=== PATIENT | male | born 1940 | race African-American/Black ===

== ENCOUNTER 2016-12-21 14:03 | Observation (INO) | payer MEDICARE ==
[~2016-12-21] VITALS: Ht 175.3 cm; Wt 68.9 kg
[~2016-12-21 14:03] MED LIST: ATEN-42 PO; ATOR40TA70 PO; DOXY100C2 PO; LOSA50TA20 PO; METF500T4 PO
[2016-12-21] MEDS ORDERED: SODIUM CHLORIDE 0.9% 500 ML IV ONE (14:56)
[2016-12-21 15:24] LABS: HEMATOCRIT. 37.9 % (42.0-52.0); HEMOGLOBIN. 12.5 g/dL (14.0-18.0); MEAN CORPUSCULAR HEMOGLOBIN 25.6 pg (28.0-32.0); MEAN CORPUSCULAR HGB CONC 33.1 g/dL (31.0-37.0); MEAN CORPUSCULAR VOLUME 77.5 fL (80.0-94.0); MEAN PLATELET VOLUME 9.1 fl (7.4-10.4); PLATELET 237 x1000/uL (130-400); RED BLOOD CELL COUNT 4.89 mill/uL (4.7-6.1); RED CELL DISTRIBUTION WIDTH 17.3 % (11.6-14.6); WHITE BLOOD COUNT 4.2 x1000/uL (4.5-11.0)
[2016-12-21 15:26] LABS: DIFFERENTIAL COMMENT 1
[2016-12-21 15:28] LABS: CHLORIDE 104 mEq/L (98-107); INDEX HEMOLYSI 1 (1-3); INDEX ICTERIC 1 (1-4); INDEX LIPEMIC 1 (1-3)
[2016-12-21 15:32] LABS: ALBUMIN 3.2 g/dL (3.4-5.0); ANION GAP 13; CARBON DIOXIDE 24 mEq/L (21-32); UREA NITROGEN BLOOD 36 mg/dL (7-21)
[2016-12-21 15:38] LABS: ALANINE AMINOTRANSFERASE 18 IU/L (13-61); eGFR > 60 mL/min (>60)
[2016-12-21 15:41] LABS: CREATINE KINASE MB FRACTION 1.1 ng/mL (0.5-3.6); TROPONIN I < 0.02 ng/mL (0.00-0.04)
[2016-12-21 16:14] LABS: PLATELET ESTIMATE NORMAL
[2016-12-21 16:15] LABS: ANISOCYTOSIS 1+
[2016-12-21] MEDS ORDERED: ASPIRIN 325MG EC TABLET PO ONE (17:45)
[2016-12-21 21:00] VITALS: BP 134/85
[2016-12-21 22:15] VITALS: BP 134/85
[2016-12-21] MEDS ORDERED: HYDROCODONE/ACETAMINOPHEN 5/325MG TABLET PO PRN (22:30)
[2016-12-21] MEDS ORDERED: ONDANSETRON HCL 4MG/2ML VIAL IV PRN (22:30)
[2016-12-21] MEDS ORDERED: ACETAMINOPHEN 325MG TABLET PO PRN (22:30)
[2016-12-21] MEDS ORDERED: DOCUSATE SODIUM 100MG CAPSULE PO PRN (22:30)
[2016-12-22] VITALS (7 sets, daily range): BP systolic 120–162; BP diastolic 75–91
[2016-12-22 06:17] LABS: DIFFERENTIAL COMMENT 0; EOSINOPHILS % 3.7 % (0.0-5.0); HEMATOCRIT. 35.5 % (42.0-52.0); HEMOGLOBIN. 11.7 g/dL (14.0-18.0); LYMPHOCYTES % 28.7 % (20.0-50.0); MEAN CORPUSCULAR HEMOGLOBIN 25.5 pg (28.0-32.0); MEAN CORPUSCULAR VOLUME 77.1 fL (80.0-94.0); MEAN PLATELET VOLUME 9.5 fl (7.4-10.4); NEUTROPHILS % 53.6 % (40.0-76.0); PLATELET 218 x1000/uL (130-400); RED CELL DISTRIBUTION WIDTH 17.2 % (11.6-14.6); WHITE BLOOD COUNT 4.1 x1000/uL (4.5-11.0)
[2016-12-22 06:37] LABS: ALANINE AMINOTRANSFERASE 14 IU/L (13-61); ALBUMIN 2.9 g/dL (3.4-5.0); ANION GAP 9; CALCIUM 8.5 mg/dL (8.5-10.1); CARBON DIOXIDE 28 mEq/L (21-32); CHLORIDE 108 mEq/L (98-107); HDL CHOLESTEROL 48 mg/dL (40-59); INDEX HEMOLYSI 1 (1-3); INDEX ICTERIC 1 (1-4); INDEX LIPEMIC 1 (1-3); T4 FREE 1.06 ng/dL (0.76-1.46); TRIGLYCERIDE 101 mg/dL (0-150); TROPONIN I < 0.02 ng/mL (0.00-0.04); UREA NITROGEN BLOOD 32 mg/dL (7-21); eGFR 55 mL/min (>60)
[2016-12-22 06:48] LABS: LDL CHOLESTEROL 73 mg/dL (5-100)
[2016-12-22] MEDS ORDERED: DEXTROSE 50% WATER 50ML SYRINGE IV PRN (07:00)
[2016-12-22] MEDS: BLOOD SUGAR DIAGNOSTIC STRIP TEST SCH ×4 (07:06→20:36)
[2016-12-22] MEDS: INSULIN LISPRO 100 UNITS/ML SUBCUT SCH ×4 (07:06→20:36)
[2016-12-22] MEDS: METFORMIN HCL 500MG TABLET PO SCH ×2 (08:14→17:37)
[2016-12-22] MEDS: LOSARTAN POTASSIUM 50 MG TABLET PO SCH (08:15)
[2016-12-22] MEDS: ASPIRIN 81MG EC TABLET PO SCH (08:15)
[2016-12-22] MEDS: ATENOLOL 25MG TABLET PO SCH (08:15)
[2016-12-22] MEDS ORDERED: DOXYCYCLINE HYCLATE 100MG CAPSULE PO SCH (09:00)
[2016-12-22] MEDS: ENOXAPARIN 40MG/0.4ML SYR SUBCUT SCH (09:55)
[2016-12-22 11:54] LABS: MAGNESIUM 2.4 mg/dL (1.8-2.4)
[2016-12-22] MEDS ORDERED: CLONIDINE 0.1MG TABLET PO PRN (12:00)
[2016-12-22] MEDS ORDERED: REGADENOSON 0.4 MG/5 ML IV ONE ×2 (12:00→13:28)
[2016-12-22] MEDS ORDERED: CLONIDINE 0.2MG TABLET PO PRN (12:00)
[2016-12-22] MEDS ORDERED: ATORVASTATIN CALCIUM 40MG TABLET PO SCH (21:00)
[2016-12-23] VITALS: BP 124/83
[2016-12-23 04:00] VITALS: BP 142/81
[2016-12-23 06:13] LABS: HEMATOCRIT. 38.4 % (42.0-52.0); HEMOGLOBIN. 12.5 g/dL (14.0-18.0); MEAN CORPUSCULAR HEMOGLOBIN 25.3 pg (28.0-32.0); MEAN CORPUSCULAR HGB CONC 32.4 g/dL (31.0-37.0); MEAN PLATELET VOLUME 9.5 fl (7.4-10.4); PLATELET 204 x1000/uL (130-400); RED BLOOD CELL COUNT 4.92 mill/uL (4.7-6.1); RED CELL DISTRIBUTION WIDTH 17.4 % (11.6-14.6); WHITE BLOOD COUNT 4.7 x1000/uL (4.5-11.0)
[2016-12-23] MEDS: BLOOD SUGAR DIAGNOSTIC STRIP TEST SCH ×2 (06:15→12:44)
[2016-12-23 06:19] VITALS: BP 137/86
[2016-12-23 06:20] VITALS: BP 157/88
[2016-12-23 06:22] LABS: CALCIUM 9.8 mg/dL (8.5-10.1); MAGNESIUM 2.1 mg/dL (1.8-2.4)
[2016-12-23] MEDS: INSULIN LISPRO 100 UNITS/ML SUBCUT SCH ×2 (06:48→12:15)
[2016-12-23 06:52] LABS: DIFFERENTIAL COMMENT 1
[2016-12-23] MEDS: METFORMIN HCL 500MG TABLET PO SCH (07:58)
[2016-12-23 08:00] VITALS: BP_SYST 135; BP_SYST 140; BP_SYST 149; BP_DIAS 69; BP_DIAS 78; BP_DIAS 80
[2016-12-23] MEDS: ASPIRIN 81MG EC TABLET PO SCH (08:18)
[2016-12-23] MEDS: ENOXAPARIN 40MG/0.4ML SYR SUBCUT SCH (08:18)
[2016-12-23] MEDS: ATENOLOL 25MG TABLET PO SCH (08:19)
[2016-12-23] MEDS: LOSARTAN POTASSIUM 50 MG TABLET PO SCH (08:19)
[2016-12-23 10:46] LABS: PLATELET ESTIMATE NORMAL
[2016-12-23 10:58] VITALS: BP 135/69
== END 2016-12-23 13:32 | disposition home or self-care (01) ==
LOC: ER 14:33 → INTOOBSV 18:46 → 5WST 18:46
PROVIDERS: ADMIT Internal Medicine; ATTEND Internal Medicine
DX: R55 Syncope and collapse (principal); E11.9 Type 2 diabetes mellitus without complications; J18.9 Pneumonia, unspecified organism; I44.7 Left bundle-branch block, unspecified; I67.82 Cerebral ischemia; F45.8 Other somatoform disorders; N28.9 Disorder of kidney and ureter, unspecified; I42.0 Dilated cardiomyopathy; Z95.0 Presence of cardiac pacemaker; Z96.649 Presence of unspecified artificial hip joint
CPT/HCPCS: 36415; 70450; 71010; 78452; 80048; 80053; 80061; 82553; 82962; 83735; 84439; 84443; 84484; 85025; 93005; 93017; 93306; 93880; 96372; 99285; A9500; G0378; J1650; J1815; J2785; J7030; J7040

== ENCOUNTER 2019-07-10 14:38 | Inpatient (IN) | payer MEDICARE ==
[~2019-07-10] VITALS: Ht 175.3 cm; Wt 69.0 kg
[~2019-07-10 14:38] MED LIST changes: -LOSA50TA20 PO; +LOSA50TA41 PO; +METF-414 PO; -METF500T4 PO
[2019-07-10 17:25] LABS: CHLORIDE 105 mEq/L (98-107)
[2019-07-10 17:26] LABS: EOSINOPHILS % 2.1 % (0.0-5.0); HEMATOCRIT. 43.3 % (42.0-52.0); LYMPHOCYTES % 15.4 % (20.0-50.0); MEAN CORPUSCULAR HEMOGLOBIN 24.6 pg (28.0-32.0); MEAN PLATELET VOLUME 8.9 fl (7.4-10.4); MONOCYTES % 11.3 % (2.0-8.0); NEUTROPHILS % 70.2 % (40.0-76.0); PLATELET 228 x1000/uL (130-400); RED CELL DISTRIBUTION WIDTH 18.1 % (11.6-14.6)
[2019-07-10] MEDS ORDERED: CLONIDINE 0.1MG TABLET PO NR (22:00)
[2019-07-10] MEDS ORDERED: CLONIDINE 0.1MG TABLET PO PRN (23:45)
[2019-07-11] VITALS (8 sets, daily range): BP systolic 100–177; BP diastolic 56–91
[2019-07-11] MEDS ORDERED: DEXTROSE 50% WATER 50ML SYRINGE IV PRN (00:15)
[2019-07-11] MEDS: NITROGLYCERIN OINT 1GM/INCH UDPKT TD SCH ×5 (01:03→20:29)
[2019-07-11 02:06] LABS: CREATINE KINASE MB FRACTION 1.7 ng/mL (0.5-3.6)
[2019-07-11] MEDS: PANTOPRAZOLE 40MG DR TABLET PO SCH (06:10)
[2019-07-11] MEDS: BLOOD SUGAR DIAGNOSTIC STRIP TEST SCH ×4 (06:24→20:29)
[2019-07-11 06:45] LABS: BASOPHILS % 1.2 % (0.0-2.0); EOSINOPHILS % 3.3 % (0.0-5.0); HEMATOCRIT. 38.7 % (42.0-52.0); HEMOGLOBIN. 12.5 g/dL (14.0-18.0); LYMPHOCYTES % 26.6 % (20.0-50.0); MEAN CORPUSCULAR HEMOGLOBIN 24.4 pg (28.0-32.0); MEAN CORPUSCULAR VOLUME 75.7 fL (80.0-94.0); MEAN PLATELET VOLUME 9.9 fl (7.4-10.4); MONOCYTES % 12.4 % (2.0-8.0); NEUTROPHILS % 56.5 % (40.0-76.0); PLATELET 221 x1000/uL (130-400); RED BLOOD CELL COUNT 5.11 mill/uL (4.7-6.1); RED CELL DISTRIBUTION WIDTH 18.3 % (11.6-14.6)
[2019-07-11] MEDS: INSULIN LISPRO 100 UNITS/ML SUBCUT SCH ×4 (07:50→21:00)
[2019-07-11 08:18] LABS: CHLORIDE 108 mEq/L (98-107)
[2019-07-11] MEDS: ENOXAPARIN 40MG/0.4ML SYR SUBCUT SCH (08:22)
[2019-07-11] MEDS: LOSARTAN POTASSIUM 50 MG TABLET PO SCH (08:22)
[2019-07-11] MEDS: METFORMIN HCL 500MG TABLET PO SCH ×2 (08:22→18:03)
[2019-07-11 08:38] LABS: LDL CHOLESTEROL 108 mg/dL (5-100)
[2019-07-11 08:40] LABS: HDL CHOLESTEROL 43 mg/dL (40-59)
[2019-07-11] MEDS ORDERED: ATENOLOL 25MG TABLET PO SCH (09:00)
[2019-07-11 10:40] LABS: CREATINE KINASE MB FRACTION 1.3 ng/mL (0.5-3.6)
[2019-07-11 11:58] LABS: BG CARBOXYHEMOGLOBIN 0.9 % (0.5-1.5); BG DEOXYHEMOGLOBIN 4.3 % (0.0-5.0); BG FRACTION INSPIRED OXYGEN 21; BG HCO3 ACT 23.7 mmol/L (22.0-26.0); BG METHEMOGLOBIN 0.1 % (0.0-1.5); BG OXYGEN SATURATION 95.7 % (92.0-98.5); BG OXYHEMOGLOBIN 94.7 % (94.0-97.0); BG PCO2 35.4 mmHg (35.0-45.0); BG PH 7.444 (7.350-7.450); BG PO2 79.2 mmHg (75.0-100.0); BG SAMPLE SITE RIGHT RADIAL; BG TOTAL HEMOGLOBIN 12.4 g/dL (12.0-18.0); BG VENT MODE ROOM AIR
[2019-07-11] MEDS: ASPIRIN 81MG TABLET PO SCH (13:55)
[2019-07-11 16:30] LABS: PROTHROMBIN TIME 10.7 sec (9.6-11.0)
[2019-07-11 18:08] LABS: CLARITY URINE CLEAR (CLEAR); COLOR URINE YELLOW (YELLOW); KETONES URINE NEGATIVE (NEGATIVE); LEUKOCYTE ESTERASE URINE NEGATIVE (NEGATIVE); NITRITE URINE NEGATIVE (NEGATIVE); OCCULT BLOOD URINE NEGATIVE (NEGATIVE); PH URINE 5.5 (4.5-8.0); PROTEIN URINE 2+ (NEGATIVE); SPECIFIC GRAVITY URINE 1.019 (1.005-1.030); UROBILINOGEN URINE 0.2 E.U./dL (0.2-1.0)
[2019-07-11 18:18] LABS: *AMPHETAMINES SCREEN URINE NEGATIVE (NEGATIVE); *BARBITURATES SCREEN URINE NEGATIVE (NEGATIVE); *BENZODIAZEPINES SCREEN URINE NEGATIVE (NEGATIVE); *COCAINE SCREEN URINE NEGATIVE (NEGATIVE)
[2019-07-11 18:19] LABS: CANNABINOID URINE SCREEN NEGATIVE (NEGATIVE); METHADONE URINE SCREEN NEGATIVE (NEGATIVE); OPIATES URINE SCREEN NEGATIVE (NEGATIVE); PHENCYCLIDINE URINE SCREEN NEGATIVE (NEGATIVE)
[2019-07-11] MEDS: CARVEDILOL 6.25 MG TABLET PO SCH (20:28)
[2019-07-11] MEDS ORDERED: ATORVASTATIN CALCIUM 40MG TABLET PO SCH (21:00)
[2019-07-12 00:41] VITALS: BP 118/71
[2019-07-12 04:00] VITALS: BP 135/70
[2019-07-12] MEDS: BLOOD SUGAR DIAGNOSTIC STRIP TEST SCH ×2 (06:20→13:15)
[2019-07-12] MEDS: PANTOPRAZOLE 40MG DR TABLET PO SCH (06:24)
[2019-07-12] MEDS: INSULIN LISPRO 100 UNITS/ML SUBCUT SCH ×2 (07:50→12:50)
[2019-07-12 08:00] VITALS: BP_SYST 128; BP_SYST 130; BP_SYST 135; BP_DIAS 71; BP_DIAS 75; BP_DIAS 82
[2019-07-12] MEDS: METFORMIN HCL 500MG TABLET PO SCH (08:31)
[2019-07-12] MEDS: LOSARTAN POTASSIUM 50 MG TABLET PO SCH (08:32)
[2019-07-12] MEDS: ASPIRIN 81MG TABLET PO SCH (08:32)
[2019-07-12] MEDS: CARVEDILOL 6.25 MG TABLET PO SCH (08:33)
[2019-07-12] MEDS: NITROGLYCERIN OINT 1GM/INCH UDPKT TD SCH ×2 (08:34→13:21)
[2019-07-12] MEDS: ENOXAPARIN 40MG/0.4ML SYR SUBCUT SCH (08:34)
[2019-07-12 09:06] LABS: BASOPHILS % 1.7 % (0.0-2.0); EOSINOPHILS % 3.6 % (0.0-5.0); HEMATOCRIT. 36.2 % (42.0-52.0); HEMOGLOBIN. 11.9 g/dL (14.0-18.0); LYMPHOCYTES % 26.8 % (20.0-50.0); MEAN CORPUSCULAR HEMOGLOBIN 24.8 pg (28.0-32.0); MEAN CORPUSCULAR VOLUME 75.5 fL (80.0-94.0); MEAN PLATELET VOLUME 9.6 fl (7.4-10.4); MONOCYTES % 12.5 % (2.0-8.0); NEUTROPHILS % 55.4 % (40.0-76.0); PLATELET 198 x1000/uL (130-400); RED BLOOD CELL COUNT 4.79 mill/uL (4.7-6.1); RED CELL DISTRIBUTION WIDTH 17.9 % (11.6-14.6)
[2019-07-12 11:37] LABS: T4 FREE 0.95 ng/dL (0.76-1.46)
[2019-07-12 12:00] VITALS: BP 134/78
[2019-07-12] MEDS ORDERED: PROT20 PO (14:39)
[2019-07-12] MEDS ORDERED: ASPI-1393 MT (14:39)
[2019-07-12] MEDS ORDERED: LIP40 MT (14:39)
[2019-07-12] MEDS ORDERED: LOSA50TA3 MT (14:39)
[2019-07-12] MEDS ORDERED: COR6 MT (14:39)
[2019-07-12] MEDS ORDERED: METF-414 MT (14:39)
[2019-07-12 14:55] VITALS: BP 134/78
[2019-07-12 16:00] VITALS: BP 137/76
== END 2019-07-12 17:05 | disposition home or self-care (01) | DRG 280 ==
LOC: ER 15:05 → ENRESERV 20:32 → 6WST 22:39
PROVIDERS: ADMIT Internal Medicine; ATTEND Internal Medicine
PROC: 4B02XTZ Measurement of Cardiac Defibrillator, External Approach (ICD-10-PCS; principal; 2019-07-12)
DX: I21.4 Non-ST elevation (NSTEMI) myocardial infarction (principal); I50.43 Acute on chronic combined systolic (congestive) and diastolic (congestive) heart failure; I11.0 Hypertensive heart disease with heart failure; D64.9 Anemia, unspecified; E78.5 Hyperlipidemia, unspecified; I25.10 Atherosclerotic heart disease of native coronary artery without angina pectoris; E11.43 Type 2 diabetes mellitus with diabetic autonomic (poly)neuropathy; F03.90 Unspecified dementia, unspecified severity, without behavioral disturbance, psychotic disturbance, mood disturbance, and anxiety; I25.5 Ischemic cardiomyopathy; D72.819 Decreased white blood cell count, unspecified; Z96.649 Presence of unspecified artificial hip joint; G90.8 Other disorders of autonomic nervous system; R35.0 Frequency of micturition; Z91.19 Patient's noncompliance with other medical treatment and regimen; Z87.01 Personal history of pneumonia (recurrent); I25.2 Old myocardial infarction; Z95.810 Presence of automatic (implantable) cardiac defibrillator; Z79.899 Other long term (current) drug therapy; Z79.84 Long term (current) use of oral hypoglycemic drugs
CPT/HCPCS: 36415; 36600; 71045; 80048; 80061; 80305; 81003; 82375; 82550; 82553; 82805; 82962; 83036; 83880; 84153; 84439; 84443; 84484; 93005; 93306; 93880; 93970; 99285; J1650; G0103